=== PATIENT | male | born 1985 | race Caucasian/White ===

== ENCOUNTER 2018-06-01 12:48 | Observation (INO) ==
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
[2018-06-01 14:58] LABS: Eosinophils % 3.1 %; Hematocrit 24.3 % (37.5-50.1); Hemoglobin 7.7 g/dL (12.9-16.9); Lymphocytes % 26.6 %; Mean Corpuscular HGB Conc 31.7 g/dL (31.6-35.5); Mean Corpuscular Hemoglobin 31.3 pg (28.0-33.3); Mean Corpuscular Volume 98.8 fL (83.0-100.0); Monocytes # 0.2 K/mcL (0.0-1.3); Monocytes % 12.5 %; Red Blood Count 2.46 M/mcL (4.19-5.50); Red Cell Distribution Width 17.2 % (11.5-14.5); Segmented Neutrophils % 57.8 %
[2018-06-01 15:13] LABS: Calcium 8.9 mg/dL (8.6-10.3); Potassium 5.4 mEq/L (3.5-5.1)
[2018-06-01 15:25] LABS: Lymphocytes # 0.4 K/mcL (0.6-4.6); Neutrophils # 0.8 K/mcL (1.6-8.9); Platelet Count 40 K/mcL (140-400)
[2018-06-01 15:26] LABS: Platelet Estimate Decreased (Normal)
[2018-06-01] MEDS ORDERED: Naloxone 0.4 MG/ML INJ IVP PRN (16:46)
--- NOTE | 2018-06-01 17:42 | Internal Med History&Physical ---
Date of Encounter: 06/01/18 Time of Encounter: 17:30 Internal Medicine - H&P: HPI Chief complaint: malfunctioning permacath and missed dialysis History of present illness: Mr. Turenr is a 32 year old male with pmh of polycystic kidney disease, hepatitis C, splenomegaly on dialysis presenting to the complaints of missed dialysis today due to a dislodged permacath. Patient gets dialysis MWF and went to dialysis at [facility] today where he told them his catheter had been dislodged and he pushed it back in by himself, and due to the fact that it was possibly infected, they refused to dialyze him and sent him to the ER to get it checked out. He also recently had a graft placement and revision in the right upper extremity at [facility] which is non functioning due to infection inpart of the graft which had to be removed. He denies any fevers, chills, nausea , vomiting or any other acute symptoms suggestive of infection. In the ER, nephrology was ocnsulted who recommended IR consult in am for graft replacement. He was noted to be pancytopenic with a low WBC, hemogobin and thrombocytopenia. He says this is chronic and is unsure why he is pancytopenic. Does admit to a history of hep C and a splenomegaly as a consequence of his polycystic kidney disease Past Med Surg Social Fam HX - Past Medical History Medical history: dialysis, hepatitis, renal disease Additional medical history: Hep C, CKD IV Psychiatric history: anxiety - Past Surgical History Additional surgical history: graft surgeries, HD port surgeries, Gtube (out at 8 y/o), tear duct repaired after dog bite - Social History Smoking Status: Current every day smoker Smokeless Tobacco Status: (2/3 pack) Alcohol use: none Drug use: none Internal Medicine - H&P: Meds Clindamycin HCl [Cleocin HCl] 300 mg PO QID 06/01/18 [History] Mirtazapine [Remeron] 30 mg PO HS 06/01/18 [History] Ranitidine HCl [Zantac] 300 mg PO DAILY 06/01/18 [History] Sevelamer [Renvela] 2,400 mg PO TIDWM 06/01/18 [History] hydrOXYzine HCl [Hydroxyzine HCl] 25 mg PO DAILY 06/01/18 [History] rOPINIRole [Requip] 1 mg PO HS 06/01/18 [History] 3 Allergy/AdvReac Type Severity Reaction Status Date / Time Amoxicillin Allergy Rash Verified 06/01/18 14:55 Cefaclor [From Ceclor] Allergy Rash Verified 06/01/18 14:55 All Systems PM: A 10-system review of systems was performed and is negative for pertinent findings except as documented above in the HPI. Review of systems: dislodged permacath - Constitutional Constitutional: no chills, no fever(s), no night sweats - EENT Eyes: no change in vision, no discharge, no pain, no photophobia Ears: no ear discharge, no ear pain, no tinnitus Nose, mouth and throat: no dysphagia, no nasal discharge, no neck pain, no sore throat - Cardiovascular Cardiovascular ROS IM: no chest pain, no diaphoresis, no dyspnea, no lightheadedness, no palpitations, no syncope - Respiratory Respiratory: no cough, no dyspnea, no wheezing, no excessive phlegm production - Gastrointestinal Gastrointestinal: no abdominal pain, no diarrhea, no hematemesis, no hematochezia, no melena, no nausea, no vomiting - Musculoskeletal Musculoskeletal ROS IM: no numbness, no tingling - Integumentary Integumentary IM: no rash, no unusual bruising - Neurological Neurological ROS: no confusion, no convulsions, no focal weakness, no numbness, no tingling, no tremor(s) - Hematologic/Lymphatic Hematologic/Lymphatic: no easy bruising - Constitutional Vitals: Temp Pulse Resp BP Pulse Ox 98.6 F 82 20 144/89 99 06/01/18 13:40 06/01/18 17:29 06/01/18 17:29 06/01/18 17:29 06/01/18 17:29 Exam: NAD - Head Head exam: Present: atraumatic, normocephalic - Eye Eye exam: Present: PERRL, conjuntiva pink, sclera anicteric Pupils: Present: PERRL - Neck Neck exam general surgery: Present: supple, trachea midline. Absent: lymphadenopathy - Respiratory Respiratory exam: Present: CTAB. Absent: accessory muscle use, rales, rhonchi, wheezes - Cardiovascular Cardiovascular exam: Present: RRR, +S1, +S2. Absent: diastolic murmur, gallop, rubs, systolic murmur - GI/Abdominal GI/Abdominal exam: Present: distended, mass, soft, splenomegaly, no peritoneal signs. Absent: tenderness - Extremities Exam Extremities exam: Present: warm, radial pulses palpable and symmetrical. Absent : calf tenderness, cyanotic, pedal edema - Neurological Exam Neurological exam: Present: CN II-XII intact, oriented X3, no focal deficits. Absent: pronater drift, facial droop, speech deficit - Skin Skin exam: Present: dry, intact Internal Med - H&P Results - Labs CBC & Chem 7: 06/01/18 14:18 06/01/18 14:18 - Assessment and plan (1) Hemodialysis catheter dysfunction Current Visit: Yes Status: Acute Assessment and plan: PT notes his catheter was dislodged by several centimeters and he tried to reinsert it and therefore his dialysis center sent him to the ER Obtain blood cultures, patient notes he is pancytopenic at baseline. He is presently afebrile, does have a low WBC. Monitor for signs of infection, low threshold for initiating antibiotics NPO from midnight, discussed with renal, IR consult in am for permacath replacement. Transfuse 2 bags of platelets prior to procedure Qualifiers: Encounter type: initial encounter Qualified Code(s): T82.41XA - Breakdown ( mechanical) of vascular dialysis catheter, initial encounter (2) ESRD (end stage renal disease) on dialysis Current Visit: Yes Status: Acute Assessment and plan: see plan for 1. Renal has been consulted. No emergent indication for dialysis. Plan for dialysis in am when permacath is replaced (3) Pancytopenia Current Visit: Yes Status: Acute Assessment and plan: Likely multifactorial from polycystic kidney disease with splenomegaly and ESRD , and hepatitis C. Will obtain HIV studies and iron panel, hepatitis C panel. Obtain B12 and folate studies. Obtain outside records. Abdominal ultrasound to assess the liver. Hematology recs appreciated (4) Hepatitis C Current Visit: Yes Status: Acute Assessment and plan: Stable Qualifiers: Qualified Code(s): B19.20 - Unspecified viral hepatitis C without hepatic coma (5) Thrombocytopenia Current Visit: Yes Status: Acute Assessment and plan: Pt is not bleeding and thombocytopenia appears to be chronic per patient. Will transfuse 2 bags of platelets prior to procedure (6) DVT prophylaxis Current Visit: Yes Status: Acute Assessment and plan: SCD (7) Hyperkalemia Current Visit: Yes Status: Acute Assessment and plan: Will give one dose of kayexalate, dialysis in am - Time Spent With Patient Total time spent is greater than 50% in coordination of care (as documented) at patient's floor/unit and/or counseling patient:
[2018-06-01 18:17] LABS: INR 1.2; Prothrombin Time 13.3 Seconds (9.4-12.1)
[2018-06-01] MEDS ORDERED: Mirtazapine 15 MG TABLET PO SCH (21:00)
[2018-06-01] MEDS ORDERED: rOPINIRole 1 MG TABLET PO SCH (21:00)
--- NOTE | 2018-06-02 01:31 | Event Note ---
Date of Encounter: 06/02/18 Time of Encounter: 01:29 I was alerted by RN that due to shortage of platelets patient will only receive one unit. New supply will be available tomorrow. Please consider re-ordering if needed according to morning labs.
[2018-06-02] MEDS ORDERED: 0.9 % Sodium Chloride 250 ML ONE (03:36)
[2018-06-02 06:40] LABS: Red Cell Distribution Width 16.7 % (11.5-14.5)
[2018-06-02 06:42] LABS: Eosinophils # 0.1 K/mcL (0.0-0.6); Eosinophils % 4.4 %; Hematocrit 25.6 % (37.5-50.1); Hemoglobin 8.4 g/dL (12.9-16.9); Immature Granulocytes % 0.7 % (0-4); Lymphocytes # 0.4 K/mcL (0.6-4.6); Lymphocytes % 27.2 %; Mean Corpuscular HGB Conc 32.8 g/dL (31.6-35.5); Mean Corpuscular Hemoglobin 32.1 pg (28.0-33.3); Mean Corpuscular Volume 97.7 fL (83.0-100.0); Mean Platelet Volume 10.5 fL (9.4-12.4); Monocytes # 0.2 K/mcL (0.0-1.3); Monocytes % 11.8 %; Neutrophils # 0.8 K/mcL (1.6-8.9); Red Blood Count 2.62 M/mcL (4.19-5.50); Segmented Neutrophils % 55.9 %
[2018-06-02 06:43] LABS: Platelet Count 38 K/mcL (140-400)
[2018-06-02 06:54] LABS: INR 1.2; Prothrombin Time 13.3 Seconds (9.4-12.1)
[2018-06-02 07:06] LABS: Calcium 9.1 mg/dL (8.6-10.3); Magnesium 3.3 mg/dL (1.6-2.6); Phosphorous 11.4 mg/dL (2.7-4.5); Potassium 5.6 mEq/L (3.5-5.1)
[2018-06-02] MEDS ORDERED: Clindamycin 600 MG/50 ML 600 MG/50 ML IV.SOLN IVPB ONE (08:35)
[2018-06-02] MEDS ORDERED: Famotidine 20 MG TABLET PO SCH (09:00)
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
[2018-06-02] MEDS ORDERED: Heparin 1,000 UNITS/500 mL 500 ML ONE (12:06)
[2018-06-02] MEDS ORDERED: 0.9 % Sodium Chloride 500 ML ONE (12:07)
[2018-06-02] MEDS ORDERED: *HR* Midazolam HCl 2 MG/2 ML VIAL IVP ONE ×2 (12:17→12:26)
[2018-06-02] MEDS ORDERED: *HR* FentaNYL (PF) 100 MCG/2 ML VIAL IVP ONE ×2 (12:17→12:26)
[2018-06-02] MEDS ORDERED: *HR* Midazolam HCl 2 MG/2 ML VIAL ONE ×2 (12:18→12:32)
[2018-06-02] MEDS ORDERED: *HR* FentaNYL (PF) 100 MCG/2 ML VIAL ONE ×2 (12:18→12:32)
[2018-06-02] MEDS ORDERED: *HR* Heparin 5,000 UNIT/ML VIAL ONE (12:27)
--- NOTE | 2018-06-02 12:41 | Internal Med Progress Note ---
Hospitalist Progress Note - Encounter Date of Encounter: 06/02/18 Time of Encounter: 08:00 - Subjective Interval History: patient was seen and examined at bedside. has no complaints denies bleeding from catheter site, denies melena, hematochezia, hematemesis, N/ V/D, fever, chills, pus from catheter site he received dialysis MWF- last dialysis was on friday. was not able to receive dialysis yesterday due to catheter malfunction he reports that he has had low blod counts for a long period of tme and is unsure as to why - Exam Vitals: Temp Pulse Resp BP Pulse Ox 97.7 F 90 18 147/96 100 06/02/18 11:33 06/02/18 12:30 06/02/18 11:33 06/02/18 12:30 06/02/18 12:30 Exam: General: Patient is alert, oriented, no acute distress, Head: atraumatic, normocephalic, Eye: normal appearance, PERRL, no scleral icterus, no conjunctival injection ENT: mucous membranes moist, normal external ear exam Neck: normal inspection, trachea midline, full ROM, no carotid bruits Chest: normal inspection, symmetric chest rise, HD cathter in right chest, covered with clean dressing Respiratory: Good respiratory effort. Bilateral breath sounds are clear without wheezing, crackles, or rhonchi. Cardiovascular: Regular rate and rhythm. s1 and s2 No clicks, rubs, gallops, or murmors. Abdomen: Bowel sounds present normoactive x-4 quadrants. Abdomen is soft, nondistended. no Epigastric tenderness. No guarding or rebound. No organomegaly noted, obese musculoskeletal: Spontaneously moving all extremities. no edema, no calf tenderness Skin: warm, dry, intact. Neuro: Alert and oriented x4. Sensation light touch intact. Cranial nerves 2- 12 is intact. Not aphasic, gait is steady, no focal deficit Psych: Patient's affect is normal - Assessment and Plan (1) Hemodialysis catheter dysfunction Current Visit: Yes Status: Acute Assessment and Plan: PT notes his catheter was dislodged by several centimeters and he tried to reinsert it and therefore his dialysis center sent him to the ER recently had a graft placement and revision in the right upper extremity at [facility] which is non functioning due to infection inpart of the graft which had to be removed. recently finished course of clindamycin as OP will start vancomycin and gentamicin - he is pancytopenic blood cx x2 sent on 06/01 IR consult in am for permacath replacement 2 platelets to be transfused prior to procedure nephrology on board (2) Pancytopenia Current Visit: Yes Status: Acute Assessment and Plan: due to unknown etiology , as per patient this is a chronic condition hematology and oncology consulted will follow recommendations hepatitis panel HIV iron profile B12 and folic acid- WNL obtain records s/p 2 platelets on 06/02- for procedure (3) ESRD (end stage renal disease) on dialysis Current Visit: Yes Status: Acute Assessment and Plan: as per above dialysis post permacath placement SW consult for reinstatement (4) Hepatitis C Current Visit: Yes Status: Acute Assessment and Plan: will send HCV RNA RUQ US 06/02 1. Hepatomegaly with nodular contour of liver under surface, suggestive of cirrhosis. 2. Splenomegaly and trace abdominal ascites, likely related to portal hypertension. 3. Hyperechoic right kidney, compatible with medical renal disease. 4. Nonvisualization of the pancreas. (5) DVT prophylaxis Current Visit: Yes Status: Acute (6) Hyperkalemia Current Visit: Yes Status: Acute Assessment and Plan: medically treated dialysis 06/02 scheduled DVT Prophylaxis: SCD - Time Spent with Patient Total time spent is greater than 50% in coordination of care (as documented) at patient's floor/unit and/or counseling patient: Internal Medicine: Result - Labs CBC & Chem 7: 06/02/18 06:10 06/02/18 06:10 Labs: Short CBC 06/02/18 Range/Units 06:10 WBC 1.4 L (4.3-11.1) K/mcL Hgb 8.4 L (12.9-16.9) g/dL Hct 25.6 L (37.5-50.1) % Plt Count 38 L (140-400) K/mcL Neutrophils # 0.8 L (1.6-8.9) K/mcL BMP 06/02/18 06:10 Sodium 136 Potassium 5.6 H Chloride 106 Carbon Dioxide 16 L BUN 60 H Creatinine 10.39 H Glucose 92 Calcium 9.1 - ABG Interpretation ABG results: PT/INR, D-dimer PT 13.3 Seconds (9.4-12.1) H 06/02/18 06:10 - Impressions Impressions Abdomen Ultrasound 06/02/18 10:00 IMPRESSION: 1. Hepatomegaly with nodular contour of liver under surface, suggestive of cirrhosis. 2. Splenomegaly and trace abdominal ascites, likely related to portal hypertension. 3. Hyperechoic right kidney, compatible with medical renal disease. 4. Nonvisualization of the pancreas. D/ / 06/02/2018 10:50:04 Fariha Farmer MD / ramila Interpreting Provider: Fariha Farmer MD Consult Discharge Plan - Plan Referrals: NONE,PCP [Primary Care Provider] - (1) Hemodialysis catheter dysfunction Qualifiers: Encounter type: initial encounter Qualified Code(s): T82.41XA - Breakdown ( mechanical) of vascular dialysis catheter, initial encounter
[2018-06-02] MEDS ORDERED: Gentamicin 140 MG in 0.9 % Sodium Chloride 100 ML IVPB SCH (13:00)
[2018-06-02] MEDS ORDERED: *HR* Heparin 10,000 UNIT/10 ML VIAL IV PRN (13:57)
[2018-06-02] MEDS ORDERED: 0.9 % Sodium Chloride 250 ML IVC PRN (13:57)
[2018-06-02] MEDS ORDERED: Vancomycin 1 EACH in 0.9 % Sodium Chloride 250 ML IVPB PRN (14:00)
[2018-06-02] MEDS ORDERED: 0.9 % Sodium Chloride 1,000 ML PRIME SCH (14:00)
--- NOTE | 2018-06-02 14:30 | IR Procedure Note ---
Date of procedure: 06/02/18 Consent Obtained: Written consent Timeout: Correct patient and procedure verified, Correct site verified, Time out performed, Skin prep completed Local anesthetic: Lidocaine 1% Indications: Tunneled HD cath had nearly completely fallen out, end in subq chest Procedure Performed: New catheter placement, tunneled Was there an assistant bookkeeper present: No Site/Technique: RIJV access, tunneled lateral to site. Working well. Results/Findings: Pt reported cath never scarred down, requested new site. Estimated blood loss (cc): 1 Complications: None; Tolerated procedure well Post Procedure Treatment Plan: Monitoring in pts room Specimen: n/a
[2018-06-02 15:31] LABS: Hepatitis B Surface Antigen Nonreactive (Nonreactive)
[2018-06-02] MEDS ORDERED: Gentamicin 1 EACH in 0.9 % Sodium Chloride 100 ML IVPB PRN (16:00)
[2018-06-02] MEDS ORDERED: Aminoglycoside Consult 1 EACH MC ONE (17:31)
--- NOTE | 2018-06-02 17:51 | Discharge Summary ---
Date of Encounter: 06/02/18 Time of Encounter: 17:48 - Discharge Diagnosis (1) Hemodialysis catheter dysfunction Priority: Primary Status: Acute Qualifiers: Encounter type: initial encounter Qualified Code(s): T82.41XA - Breakdown ( mechanical) of vascular dialysis catheter, initial encounter (2) Pancytopenia Priority: Secondary Status: Acute (3) ESRD (end stage renal disease) on dialysis Priority: Secondary Status: Acute (4) Hepatitis C Priority: Secondary Status: Acute Qualifiers: Viral hepatitis chronicity: chronic Qualified Code(s): B18.2 - Chronic viral hepatitis C (5) DVT prophylaxis Priority: Secondary Status: Acute (6) Hyperkalemia Priority: Secondary Status: Acute Hospital course: Mr. Turner is a 32 year old male with pmh of polycystic kidney disease, hepatitis C, splenomegaly on dialysis presenting to the complaints of missed dialysis today due to a dislodged permacath. Patient gets dialysis MWF and went to dialysis at [facility] today where he told them his catheter had been dislodged and he pushed it back in by himself, and due to the fact that it was possibly infected, they refused to dialyze him and sent him to the ER to get it checked out. He also recently had a graft placement and revision in the right upper extremity at [facility] which is non functioning due to infection inpart of the graft which had to be removed. He denies any fevers, chills, nausea , vomiting or any other acute symptoms suggestive of infection. In the ER, nephrology was ocnsulted who recommended IR consult in am for graft replacement. He was noted to be pancytopenic with a low WBC, hemogobin and thrombocytopenia. He says this is chronic and is unsure why he is pancytopenic. Does admit to a history of hep C and a splenomegaly as a consequence of his polycystic kidney disease patietn was admitted du to above presentation. IR was consulted and HD catheter as placed. he recieved platelets prior to procedure. hematology and oncology was consulted. his hyperkalemia was treated nephrology was consulted and he received HD on 06/02/18 post dialysis he did not want to stay in [facility] and reported that all the tests are "pointless" Explained to the patient the importance of disease management in the hospital and risk of signing out AMA. pt understood complication of not being cooperative with treatment management that includes but not limited to even . Patient signed AMA. Witnessed by nurse. Discharge discussed with: patient - Time Spent with Patient Total time spent providing and/or coordinating discharge services: Less than 30 minutes - Discharge Medications Home Medications: Mirtazapine [Remeron] 30 mg PO HS 06/01/18 [History] Ranitidine HCl [Zantac] 300 mg PO DAILY 06/01/18 [History] Sevelamer [Renvela] 2,400 mg PO TIDWM 06/01/18 [History] hydrOXYzine HCl [Hydroxyzine HCl] 25 mg PO DAILY 06/01/18 [History] rOPINIRole [Requip] 1 mg PO HS 06/01/18 [History] Allergies/Adverse Reactions: 3 Allergy/AdvReac Type Severity Reaction Status Date / Time Amoxicillin Allergy Rash Verified 06/01/18 14:55 Cefaclor [From Ceclor] Allergy Rash Verified 06/01/18 14:55 Date of admission: 06/01/18 17:21 Primary care physician: PCP NONE Consults: 06/01/18 17:31 Consult to Interventional Radiology [CONS] Routine Consulting Provider: Radiology Interventional Cols Reason for Consult: permacath replacement for dialysis Call Completed: No 06/02/18 14:00 Consult to Dialysis [CONS] ONCE - Constitutional Vitals: Temp Pulse Resp BP Pulse Ox 97.7 F 88 18 124/83 99 06/02/18 13:45 06/02/18 13:01 06/02/18 13:45 06/02/18 16:45 06/02/18 13:01 Exam: N/A - Patient Status Disposition: Left Against Medical Advice Condition: Fair - Discharge Instructions Follow Up With: NONE,PCP [Primary Care Provider] -
[2018-06-02] MEDS ORDERED: Gentamicin 140 MG in 0.9 % Sodium Chloride 100 ML IVPB ONE (18:00)
[2018-06-02 20:06] VITALS: BP 118/72
[2018-06-03 03:38] LABS: Hepatitis A Antibody IgM Nonreactive (Nonreactive); Hepatitis B Core IgM Nonreactive (Nonreactive); Hepatitis B Surface Antigen Nonreactive (Nonreactive)
[2018-06-03 04:28] LABS: Hepatitis C Virus Antibody Reactive (Nonreactive)
[2018-06-03 04:34] LABS: Hepatitis B Surface Antibody 68.83 mIU/mL
--- NOTE | 2018-06-04 23:48 | Electrocardiograph Report ---
[place] [id number] Test Date: 2018-06-01 Pat Name: Kwadwo Turner Department: [id number] Room: 2A Gender: M Distribution Sales Representative: : 1985 Requested By: Dinora Nuñez Order Number: [id number] Reading MD: Abigail Hart Measurements Intervals [place] Rate: 79 P: -15 [place]: 144 QRS: 71 QRSD: 99 T: 38 QT: 399 QTc: 458 Interpretive Statements Normal sinus rhythm Electronically Signed On 06-04-2018 23:46:43 EDT by Abigail Hart
== END 2018-06-02 17:32 | disposition left against medical advice (07) ==
LOC: EMEROOARM 12:48 → 2ANU 12:48 → SUATTDRO 17:21 → 2ANU 18:23
PROVIDERS: ADMIT Student in an Organized Health Care Education/Training Program; ATTEND Internal Medicine